=== PATIENT | male | born 1965 | race Caucasian/White ===

== ENCOUNTER 2019-05-05 06:33 | Day surgery (SDC) | payer OTHER ==
[~2019-05-05] VITALS: Ht 168.9 cm; Wt 58.2 kg
[~2019-05-05 06:33] MED LIST: SODIUM CHLORIDE 0.9% 1,000 ML IV ONE; SODIUM CHLORIDE 0.9% 1,000 ML ONE
[2019-05-05] MEDS ORDERED: LIDOCAINE 4% 50 ML SOLUTION TP ONE (06:34)
[2019-05-05] MEDS ORDERED: ALBUTEROL SULFATE 2.5 MG/0.5 ML NEB SOLUTION NEB ONE (06:34)
[2019-05-05] MEDS ORDERED: LIDOCAINE 2% 30 ML JELLY TP ONE (06:34)
[2019-05-05] MEDS ORDERED: BENZOCAINE 20% 50 MCG/SPRAY 57 GM TP ONE (06:34)
[2019-05-05 07:54] LABS: GLUCOMETER DEV NAME(LOC) SDS.; GLUCOSE,POINT OF CARE 108 MG/DL (70-110)
[2019-05-05] MEDS ORDERED: FentaNYL CITRATE-PF 100 MCG/2 ML VIAL ONE (07:59)
[2019-05-05] MEDS ORDERED: MIDAZOLAM HCL 2 MG/2 ML VIAL ONE (07:59)
[2019-05-05] MEDS ORDERED: INSLAN SQ (07:59)
[2019-05-05] MEDS ORDERED: METF-960 PO (07:59)
[2019-05-05] MEDS ORDERED: MethylPREDNISolone SOD SUCC 125 MG/2 ML VIAL IVP ONE (09:00)
[2019-05-05] MEDS ORDERED: MethylPREDNISolone SOD SUCC 125 MG/2 ML VIAL ONE (09:23)
[2019-05-05] MEDS ORDERED: OXYGEN THERAPY IH SCH (20:00)
== END 2019-05-05 10:45 | disposition home or self-care (01) ==
LOC: SURGERY 06:33
PROVIDERS: ATTEND Internal Medicine Critical Care Medicine
DX: R05 Cough (principal); R91.1 Solitary pulmonary nodule; J98.8 Other specified respiratory disorders; J34.89 Other specified disorders of nose and nasal sinuses; J38.4 Edema of larynx; B37.0 Candidal stomatitis; E11.9 Type 2 diabetes mellitus without complications; F17.210 Nicotine dependence, cigarettes, uncomplicated; Z79.899 Other long term (current) drug therapy; Z89.421 Acquired absence of other right toe(s); R19.09 Other intra-abdominal and pelvic swelling, mass and lump
CPT/HCPCS: 31623; 31624; 71045; 82962; 87015; 87070; 87077; 87101; 87186; 87205; 87206; 87220; 88108; 88184; 88185; 88312; J2250; J2930; J3010; J7030